=== PATIENT | male | born 1995 | race African-American/Black ===

== ENCOUNTER 2018-01-06 16:46 | Emergency (ER) | payer SELFPAY ==
[2018-01-06 16:54] VITALS: BP 137/68; BMI 20.5
[2018-01-06] MEDS ORDERED: IBUPROFEN 600 MG TABLET (FP) PO ONE ×2 (17:31→17:41)
--- NOTE | 2018-01-06 17:31 | PDOC ---
History of Present Illness - General Chief Complaint: Headache Stated Complaint: HEADACHE Time Seen by Provider: 01/06/18 17:10 History Source: Patient Exam Limitations: No Limitations - History of Present Illness Initial Comments: CHIEF COMPLAINT: 22 y/o febrile male c/o fever and headache x 4 days. HISTORY OF PRESENT ILLNESS: The patient states the headache is in the front of his head. He denies neck pain, changes in vision/hearing, earache, cough, runny nose, nasal congestion, n/v/d, CP, SOB, abd pain, decrease in PO intake. The patient has taken some claritin, excedrin, dayquil and nyquil for his symptoms with little relief. Vital signs on arrival are notable for pulse of 99 secondary to temp of 100. REVIEW OF SYSTEMS: GENERAL/CONSTITUTIONAL: +fever HEAD, EYES, EARS, NOSE AND THROAT: No change in vision. No ear pain or discharge. No sore throat. CARDIOVASCULAR: No chest pain or shortness of breath. RESPIRATORY: No cough, wheezing, or hemoptysis. GASTROINTESTINAL: No abd pain, nausea, vomiting, diarrhea. GENITOURINARY: No dysuria, frequency, or change in urination. MUSCULOSKELETAL: No joint or muscle swelling or pain. No neck or back pain. SKIN: No rash or easy bruising. NEUROLOGIC: +headache. No , vertigo, loss of consciousness, or loss of sensation. PHYSICAL EXAM: GENERAL: The patient is awake, alert, and fully oriented, in no acute distress. He is well appearing and ambulatory. HEAD: Normal with no signs of trauma. No pain with palpation of sinuses. NECK: No meningismus. ENT: Pupils equal, round and reactive to light, extraocular movements intact, sclera anicteric, conjunctiva clear. LUNGS: Clear to auscultation bilaterally. Normal excursion. No respiratory distress or use of accessory muscles. CV: RRR, S1/S2, no MRG. Cap refill < 2 sec. ABDOMEN: Soft, non-distended, non-tender even to deep palpation, no hepatomegaly or splenomegaly, no masses. EXTREMITIES: Normal range of motion, no edema. NEUROLOGICAL: Normal speech, normal gait. CN II-XII grossly intact. PSYCH: Normal mood, normal affect. SKIN: Warm, dry, normal turgor, no rashes or lesions noted. Past History - Past Medical History Allergies/Adverse Reactions: Allergies Allergy/AdvReac Type Severity Reaction Status Date / Time No Known Allergies Allergy Verified 01/06/18 16:51 Home Medications: Ambulatory Orders NK [No Known Home Medication] 01/06/18 Anemia: Yes COPD: No DVT: No Dementia: No - Immunization History Immunization Up to Date: No - Suicide/Smoking/Psychosocial Hx Smoking History: Never smoked Have you smoked in the past 12 months: No Information on smoking cessation initiated: No Hx Alcohol Use: No Drug/Substance Use Hx: No Substance Use Type: Marijuana *Physical Exam - Vital Signs Last Vital Signs Temp Pulse Resp BP Pulse Ox 100.0 F H 99 H 16 137/68 100 01/06/18 16:51 01/06/18 16:51 01/06/18 16:51 01/06/18 16:51 01/06/18 16:51 Medical Decision Making - Medical Decision Making A/P: 22 y/o male with fever and headache x 4 days. Normal physical exam. Plan is as follows: 1. PO ibuprofen 2. IM decadron 3. PO benadryl The patient is no longer febrile or tachycardic. He states his headache has lessened with ibuprofen. Will discharge to home with supportive care instructions. The patient verbalizes understanding of all instructions, has no further questions and is awaiting discharge. *DC/Admit/Observation/Transfer Diagnosis at time of Disposition: Fever Qualifiers: Fever type: unspecified Qualified Code(s): R50.9 - Fever, unspecified Headache Qualifiers: Headache type: unspecified Headache chronicity pattern: acute headache Intractability: not intractable Qualified Code(s): R51 - Headache - Discharge Dispostion Disposition: HOME Condition at time of disposition: Improved - Referrals - Patient Instructions Printed Discharge Instructions: DI for Fever (Symptom) -- Adult, DI for Headache Additional Instructions: Discharge Instructions: -Alternate between 600mg of over the counter Ibuprofen and 650mg of over the counter Tylenol every 3 hours for fever and headache -Drink lots of fluids -Get plenty of rest -Return to the ER with any worsening or concerning symptoms - Post Discharge Activity Forms/Work/School Notes: Back to Work
[2018-01-06] MEDS ORDERED: DEXAMETHASONE SOD PHOSPHATE 10 MG/1 ML VIAL IM ONE (17:32)
[2018-01-06] MEDS ORDERED: diphenhydrAMINE HCL 25 MG CAPSULE (FP) PO ONE ×2 (17:32→17:42)
[2018-01-06] MEDS ORDERED: DEXAMETHASONE SOD PHOSPHATE 10 MG/1 ML VIAL ONE (17:41)
[2018-01-06 18:55] VITALS: PULSE 92; TEMP 99.8
== END 2018-01-06 18:53 | disposition home or self-care (01) ==
LOC: JERFT 16:46 → JER 16:46 → JERFT 18:53
PROC: 3E0233Z Introduction of Anti-inflammatory into Muscle, Percutaneous Approach (ICD-10-PCS; principal; 2018-01-06)
DX: R50.9 Fever, unspecified (principal); R51 Headache
CPT/HCPCS: 96372; 99281-25; J1100

== ENCOUNTER 2018-01-08 08:55 | Inpatient (IN) | payer OTHER ==
[2018-01-08] MEDS ORDERED: KETOROLAC TROMETHAMINE 30 MG/1 ML VIAL IVPUSH ONE ×2 (09:30→17:26)
[2018-01-08] MEDS ORDERED: METOCLOPRAMIDE HCL INJECTION 10 MG/2 ML VIAL IVPB ONE ×2 (09:30→17:26)
[2018-01-08] MEDS ORDERED: SODIUM CHLORIDE 1,000 ML IV STA (09:30)
[2018-01-08] MEDS ORDERED: METOCLOPRAMIDE HCL INJECTION 10 MG/2 ML VIAL ONE ×2 (09:35→17:29)
[2018-01-08] MEDS ORDERED: KETOROLAC TROMETHAMINE 30 MG/1 ML VIAL ONE ×2 (09:35→17:29)
--- NOTE | 2018-01-08 09:35 | PDOC ---
History of Present Illness - General Chief Complaint: Headache Stated Complaint: MIGRAINE HEADACHE Time Seen by Provider: 01/08/18 09:20 History Source: Patient - History of Present Illness Timing/Duration: reports: other Severity: Yes: severe Past History - Past Medical History Allergies/Adverse Reactions: Allergies Allergy/AdvReac Type Severity Reaction Status Date / Time mushroom Allergy Verified 01/08/18 08:59 Home Medications: Ambulatory Orders NK [No Known Home Medication] 01/06/18 Anemia: Yes CVA: No COPD: No DVT: No Dementia: No - Immunization History Immunization Up to Date: No - Suicide/Smoking/Psychosocial Hx Smoking History: Never smoked Have you smoked in the past 12 months: No Information on smoking cessation initiated: No Hx Alcohol Use: No Drug/Substance Use Hx: No Substance Use Type: Marijuana Review of Systems - Review of Systems Constitutional: No: Chills, Fever HEENTM: No: Blurred Vision ABD/GI: No: Nausea, Vomiting Neurological: Yes: Headache. No: Dizziness *Physical Exam - Vital Signs Last Vital Signs Temp Pulse Resp BP Pulse Ox 98.3 F 58 L 18 105/82 100 01/08/18 08:57 01/08/18 08:57 01/08/18 08:57 01/08/18 08:57 01/08/18 08:57 - Physical Exam General Appearance: Yes: Appropriately Dressed. No: Apparent Distress HEENT: positive: Normal Voice Neck: positive: Supple. negative: Tender, Decreased range of motion Respiratory/Chest: negative: Respiratory Distress Integumentary: positive: Dry, Warm Neurologic: positive: regulator mechanic II-XII NML intact, Fully Oriented, Alert, Normal Mood/ Affect, Motor Strength 5/5 (no nystagmus, [place] intact, no drift, no ataxia) ED Treatment Course - LABORATORY CBC & Chemistry Diagram: 01/08/18 10:55 01/08/18 10:55 - RADIOLOGY Radiology Studies Ordered: Category Date Time Status HEAD CT WITHOUT CONTRAST [CT] Stat CT Scan 01/08/18 09:30 Ordered Medical Decision Making - Medical Decision Making 01/08/18 09:30 22-year-old male denies any past medical history here with headache. Patient reports that he developed severe frontal headache approximately 6 days ago, pressure-like in nature and on a scale of 10 out of 10. States nothing makes pain better or worse. No dizziness, visual changes, nausea, vomiting, or focal weakness. Denies neck pain, uri sxs, f/c. Patient states pain resolved at some point and then reoccurred 3 days ago when he was seen in the ED at [facility]. States pain resolved with IV meds and discharged to take Tylenol or Motrin for pain as needed. Patient states he has been taking Excedrin and Tylenol alternately that states pain even worse now. States this morning while walking to the bathroom he fell to the ground, did not lose consciousness. Patient not certain why he fell at states he was not dizzy and no chest pain prior to fall. Patient denies any significant family history. No unexplained weight loss. See exam Worsening FITCH Improved w/ IV meds meds in ED 3 days ago, did have low grade fever of 100F on last ED visit No infectious sxs at this time Neuro intact in ED -pain control -CT given concerning story and ?near syncope -if discharged, will need neuro f/u for possible MRI if FITCH persists 01/08/18 10:46 CT head read as severe sinus disease including almost opacified frontal sinuses w/ ~3.2x1.3 mm pneumocephalus w/ ? leptomeningeal thickening per radiology, who is physically in the ER. Recommends stat MRI +/-7. Pt remains stable and neurologically intact. Labs pending. NS consult placed 01/08/18 11:56 Pt actively vomiting in ED. Nathaliefran in progress. MRI staff aware and will expedite MRI 01/08/18 15:48 MRI read as mild dural thickening to level of right frontal lobe. Pneumocephalus that was seen on prior CT is not appreciated on MRI. No other acute pathology. Patient remains stable and well appearing and requesting food. Still awaiting callback from neurosurgery. Plan is to admit patient for IV antibiotics and further observation 01/08/18 15:[address] Ramon who recommends consultation with Dr. Gonzalez of neurologist and Dr. José of ID. Aware that I am still awaiting callback from neurosurgery. Patient admitted for IV antibiotics and further observation at this time *DC/Admit/Observation/Transfer Diagnosis at time of Disposition: Headache Qualifiers: Headache type: unspecified Headache chronicity pattern: acute headache Intractability: not intractable Qualified Code(s): R51 - Headache Sinusitis Qualifiers: Sinusitis location: frontal Chronicity: acute Recurrence: non-recurrent Qualified Code(s): J01.10 - Acute frontal sinusitis, unspecified - Discharge Dispostion Condition at time of disposition: Fair Admit: Yes - Referrals - Patient Instructions - Post Discharge Activity
[2018-01-08] MEDS ORDERED: VANCOMYCIN 1,000 MG in DEXTROSE 5%-WATER - 250 ML IVPB ONE (11:01)
[2018-01-08] MEDS ORDERED: CEFTRIAXONE 2 GM in DEXTROSE 5%-WATER - 50 ML IVPB ONE (11:01)
[2018-01-08 11:03] LABS: BASO % 0.3 % (0-2.0); EOS % 0.7 % (0-4.5); HEMATOCRIT 40.2 % (35.4-49); HEMOGLOBIN 13.2 GM/dL (11.7-16.9); LYMPH % 12.3 % (8-40); MCH 28.6 pg (25.7-33.7); MCHC 32.7 g/dl (32.0-35.9); MEAN CELL VOLUME 87.4 fl (80-96); MEAN PLT VOLUME 9.4 fl (7.5-11.1); MONO % 12.8 % (3.8-10.2); NEUT % 73.9 % (42.8-82.8); PLATELET COUNT 192 K/MM3 (134-434); RDW 12.8 % (11.9-15.9); WHITE BLOOD COUNT 11.3 K/mm3 (4.0-10.0)
[2018-01-08] MEDS ORDERED: CEFTRIAXONE 2 GM/100 ML BAG IVPB ONE (11:12)
[2018-01-08] MEDS ORDERED: VANCOMYCIN 1 GRAM (PRE-DOCKED) 1,000 MG/250 ML BAG IVPB ONE (11:12)
[2018-01-08 11:44] LABS: ALBUMIN 3.4 g/dl (3.4-5.0); ALK PHOS 52 U/L (45-117); ANION GAP 8 (8-16); BILIRUBIN,TOTAL 0.7 mg/dL (0.2-1.0); BLOOD UREA NITROGEN 12 mg/dL (7-18); CALCIUM 8.6 mg/dL (8.5-10.1); CHLORIDE 106 mmol/L (98-107); CO2 27 mmol/L (21-32); CREATININE 1.2 mg/dL (0.7-1.3); GLUCOSE,RANDOM 91 mg/dL (74-106); POTASSIUM 3.8 mmol/L (3.5-5.1); SGOT/AST 12 U/L (15-37); SGPT/ALT 14 U/L (12-78); SODIUM 141 mmol/L (136-145)
[2018-01-08] MEDS ORDERED: SODIUM CHLORIDE 500 ML IV STA (11:55)
[2018-01-08] MEDS ORDERED: ONDANSETRON 4 MG/2 ML VIAL IVPUSH ONE (11:55)
[2018-01-08 12:04] LABS: INR 1.3 (0.82-1.09); PROTHROMBIN TIME (PATIENT) 14.7 SEC (9.7-13.0)
[2018-01-08] MEDS ORDERED: ONDANSETRON 4 MG/2 ML VIAL ONE (12:07)
[2018-01-08 12:11] LABS: URINE APPEARANCE CLEAR; URINE BILIRUBIN NEGATIVE (<2.0 mg/dL); URINE BLOOD NEGATIVE (NEGATIVE); URINE COLOR LTYELLOW; URINE GLUCOSE (UA) NEGATIVE (NEGATIVE); URINE KETONE NEGATIVE (NEGATIVE); URINE LEUK ESTERASE NEGATIVE (NEGATIVE); URINE NITRITE NEGATIVE (NEGATIVE); URINE PROTEIN NEGATIVE (NEGATIVE); URINE UROBILINOGEN 4.0 E.U/dl mg/dL (0.2-1.0)
--- NOTE | 2018-01-08 16:43 | PDOC ---
*Physical Exam - Vital Signs Last Vital Signs Temp Pulse Resp BP Pulse Ox 98.2 F 58 L 18 106/60 100 01/08/18 15:01 01/08/18 15:01 01/08/18 15:01 01/08/18 15:01 01/08/18 15:01 - Physical Exam Comments: 01/08/18 16:43 Pt seen by the Advanced Practice Provider under my direct supervision Ancillary studies reviewed I agree with plan as outlined by the Advanced Practice Provider ED Treatment Course - LABORATORY CBC & Chemistry Diagram: 01/08/18 10:55 01/08/18 10:55 - ADDITIONAL ORDERS Additional order review: Laboratory Results 01/08/18 01/08/18 01/08/18 12:55 11:37 11:09 PT with INR 14.70 H INR 1.30 H Sodium Potassium Chloride Carbon Dioxide Anion Gap BUN Creatinine Creat Clearance w eGFR Random Glucose Calcium Total Bilirubin AST ALT Alkaline Phosphatase Total Protein Albumin Urine Color Ltyellow Urine Appearance Clear Urine pH 6.0 Ur Specific [place] 1.011 Urine Protein Negative Urine Glucose (UA) Negative Urine Ketones Negative Urine Blood Negative Urine Nitrite Negative Urine Bilirubin Negative Urine Urobilinogen 4.0 e.u/dl Ur Leukocyte Esterase Negative Blood Type B POSITIVE Antibody Screen 01/08/18 01/08/18 10:55 10:55 PT with INR INR Sodium 141 Potassium 3.8 Chloride 106 Carbon Dioxide 27 Anion Gap 8 BUN 12 Creatinine 1.2 Creat Clearance w eGFR > 60 Random Glucose 91 Calcium 8.6 Total Bilirubin 0.7 AST 12 L ALT 14 Alkaline Phosphatase 52 Total Protein 7.0 Albumin 3.4 Urine Color Urine Appearance Urine pH Ur Specific [place] Urine Protein Urine Glucose (UA) Urine Ketones Urine Blood Urine Nitrite Urine Bilirubin Urine Urobilinogen Ur Leukocyte Esterase Blood Type B POSITIVE Antibody Screen Negative 01/08/18 10:55 RBC 4.60 MCV 87.4 MCHC 32.7 RDW 12.8 MPV 9.4 Neutrophils % 73.9 Lymphocytes % 12.3 Monocytes % 12.8 H Eosinophils % 0.7 Basophils % 0.3 - Medications Given in the ED: ED Medications Discontinued Medications Generic Name Dose Route Start Last Admin Trade Name Freq PRN Reason Stop Dose Admin Sodium Chloride 1,000 mls @ 1,000 mls/hr 01/08/18 09:30 01/08/18 09:44 Normal Saline - IV 01/08/18 10:29 1,000 mls/hr ASDIR STA Administration Ceftriaxone Sodium 2 gm/ 50 mls @ 100 mls/hr 01/08/18 11:01 01/08/18 11:20 Dextrose IVPB 01/08/18 11:30 100 mls/hr ONCE ONE Administration Vancomycin HCl 1,000 mg/ 250 mls @ 250 mls/hr 01/08/18 11:01 01/08/18 11:48 Dextrose IVPB 01/08/18 12:00 250 mls/hr ONCE ONE Administration Protocol Sodium Chloride 500 mls @ 500 mls/hr 01/08/18 11:55 01/08/18 12:14 Normal Saline - IV 01/08/18 12:54 500 mls/hr ASDIR STA Administration Ketorolac Tromethamine 30 mg 01/08/18 09:30 01/08/18 09:44 Toradol Injection - IVPUSH 01/08/18 09:31 30 mg ONCE ONE Administration Metoclopramide HCl 10 mg 01/08/18 09:30 01/08/18 09:44 Reglan Injection - IVPB 01/08/18 09:31 10 mg ONCE ONE Administration Ondansetron HCl 4 mg 01/08/18 11:55 01/08/18 12:14 Zofran Injection IVPUSH 01/08/18 11:56 4 mg ONCE ONE Administration *DC/Admit/Observation/Transfer Diagnosis at time of Disposition: Headache Qualifiers: Headache type: unspecified Headache chronicity pattern: acute headache Intractability: not intractable Qualified Code(s): R51 - Headache Sinusitis Qualifiers: Sinusitis location: frontal Chronicity: acute Recurrence: non-recurrent Qualified Code(s): J01.10 - Acute frontal sinusitis, unspecified - Discharge Dispostion Condition at time of disposition: Fair - Referrals - Patient Instructions - Post Discharge Activity
[2018-01-08 19:22] VITALS: BMI 20.3
--- NOTE | 2018-01-08 19:31 | HP ---
Admitting History and Physical - Primary Care Physician PCP: Shelly Ramon - Admission Chief Complaint: headache History of Present Illness: 22-year-old male denies any past medical history here with headache. Patient reports that he developed severe frontal headache approximately 6 days ago, pressure-like in nature and on a scale of 10 out of 10. States nothing makes pain better or worse. No dizziness, visual changes, nausea, vomiting, or focal weakness. Denies neck pain, uri sxs, f/c. Patient states pain resolved at some point and then reoccurred 3 days ago when he was seen in the ED at [facility]. States pain resolved with IV meds and discharged to take Tylenol or Motrin for pain as needed. Patient states he has been taking Excedrin and Tylenol alternately that states pain even worse now. States this morning while walking to the bathroom he fell to the ground, did not lose consciousness. Patient not certain why he fell at states he was not dizzy and no chest pain prior to fall. - Smoking History Smoking history: Never smoked Have you smoked in the past 12 months: Yes - Alcohol/Substance Use Hx Alcohol Use: Yes Home Medications - Allergies Allergies/Adverse Reactions: Allergies Allergy/AdvReac Type Severity Reaction Status Date / Time mushroom Allergy Verified 01/08/18 08:59 - Home Medications Home Medications: Ambulatory Orders NK [No Known Home Medication] 01/06/18 Physical Examination Vital Signs: Vital Signs Temperature 98.9 F 01/08/18 19:01 Pulse Rate 55 L 01/08/18 19:01 Respiratory Rate 20 01/08/18 19:01 Blood Pressure 113/56 01/08/18 19:01 O2 Sat by Pulse Oximetry (%) 100 01/08/18 18:26 Constitutional: Yes: No Distress HENT: Yes: Atraumatic Neck: Yes: Supple Cardiovascular: Yes: Regular Rate and Rhythm Respiratory: Yes: CTA Bilaterally Gastrointestinal: Yes: Normal Bowel Sounds Extremities: Yes: WNL Edema: No Peripheral Pulses WNL: Yes Neurological: Yes: Alert, Oriented Labs: CBC, BMP 01/08/18 10:55 01/08/18 10:55 Problem List - Problems (1) Headache Assessment/Plan: prn pain meds will get neuro involved Code(s): R51 - HEADACHE Qualifiers: Headache type: unspecified Headache chronicity pattern: acute headache Intractability: not intractable Qualified Code(s): R51 - Headache (2) Sinusitis Assessment/Plan: on abx will get id involved Code(s): J32.9 - CHRONIC SINUSITIS, UNSPECIFIED Qualifiers: Sinusitis location: frontal Chronicity: acute Recurrence: non-recurrent Qualified Code(s): J01.10 - Acute frontal sinusitis, unspecified (3) Fever Assessment/Plan: prn tylenol Code(s): R50.9 - FEVER, UNSPECIFIED Qualifiers: Fever type: unspecified Qualified Code(s): R50.9 - Fever, unspecified Assessment/Plan Active Medications Generic Name Dose Route Start Last Admin Trade Name Freq PRN Reason Stop Dose Admin Acetaminophen 650 mg 01/08/18 21:19 Tylenol - PO Q6H PRN FEVER Oxycodone HCl 10 mg 01/08/18 21:19 Roxicodone - PO Q6H PRN PAIN Laboratory Tests 01/08/18 01/08/18 01/08/18 10:55 10:55 10:55 WBC 11.3 H RBC 4.60 Hgb 13.2 Hct 40.2 MCV 87.4 MCH 28.6 MCHC 32.7 RDW 12.8 Plt Count 192 MPV 9.4 Neutrophils % 73.9 Lymphocytes % 12.3 Monocytes % 12.8 H Eosinophils % 0.7 Basophils % 0.3 PT with INR INR Sodium 141 Potassium 3.8 Chloride 106 Carbon Dioxide 27 Anion Gap 8 BUN 12 Creatinine 1.2 Creat Clearance w eGFR > 60 Random Glucose 91 Calcium 8.6 Total Bilirubin 0.7 AST 12 L ALT 14 Alkaline Phosphatase 52 Total Protein 7.0 Albumin 3.4 Urine Color Urine Appearance Urine pH Ur Specific [place] Urine Protein Urine Glucose (UA) Urine Ketones Urine Blood Urine Nitrite Urine Bilirubin Urine Urobilinogen Ur Leukocyte Esterase Blood Type B POSITIVE Antibody Screen Negative 01/08/18 01/08/18 01/08/18 11:09 11:37 12:55 WBC RBC Hgb Hct MCV MCH MCHC RDW Plt Count MPV Neutrophils % Lymphocytes % Monocytes % Eosinophils % Basophils % PT with INR 14.70 H INR 1.30 H Sodium Potassium Chloride Carbon Dioxide Anion Gap BUN Creatinine Creat Clearance w eGFR Random Glucose Calcium Total Bilirubin AST ALT Alkaline Phosphatase Total Protein Albumin Urine Color Ltyellow Urine Appearance Clear Urine pH 6.0 Ur Specific [place] 1.011 Urine Protein Negative Urine Glucose (UA) Negative Urine Ketones Negative Urine Blood Negative Urine Nitrite Negative Urine Bilirubin Negative Urine Urobilinogen 4.0 e.u/dl Ur Leukocyte Esterase Negative Blood Type B POSITIVE Antibody Screen Active Medications Generic Name Dose Route Start Last Admin Trade Name Freq PRN Reason Stop Dose Admin Acetaminophen 650 mg 01/08/18 21:19 01/09/18 16:29 Tylenol - PO 650 mg Q6H PRN Administration FEVER Ampicillin Sodium/Sulbactam 100 mls @ 200 mls/hr 01/09/18 14:45 01/09/18 15: 48 Sodium 3 gm/ Sodium Chloride IVPB 200 mls/hr Q8H-IV EWELINA Administration Ketorolac Tromethamine 30 mg 01/08/18 23:56 01/09/18 11:35 Toradol Injection - IVPUSH 01/13/18 23:55 30 mg Q8H PRN Administration PAIN LEVEL 7 - 10 Oxycodone HCl 10 mg 01/08/18 21:19 01/09/18 16:30 Roxicodone - PO 10 mg Q6H PRN Administration PAIN
[2018-01-08] MEDS: oxyCODONE HCL 5 MG TABLET PO PRN (22:00)
[2018-01-08] MEDS: ACETAMINOPHEN 325 MG TABLET (FP) PO PRN (22:01)
[2018-01-09] MEDS: KETOROLAC TROMETHAMINE 30 MG/1 ML VIAL IVPUSH PRN ×3 (00:06→23:44)
[2018-01-09] MEDS: oxyCODONE HCL 5 MG TABLET PO PRN ×2 (06:56→16:30)
[2018-01-09] MEDS: ACETAMINOPHEN 325 MG TABLET (FP) PO PRN ×2 (06:58→16:29)
[2018-01-09 07:48] LABS: BASO % 0.4 % (0-2.0); HEMATOCRIT 38.7 % (35.4-49); HEMOGLOBIN 12.8 GM/dL (11.7-16.9); LYMPH % 17.4 % (8-40); MCH 28.9 pg (25.7-33.7); MCHC 33.2 g/dl (32.0-35.9); MEAN PLT VOLUME 8.5 fl (7.5-11.1); MONO % 12.1 % (3.8-10.2); NEUT % 69.1 % (42.8-82.8); PLATELET COUNT 219 K/MM3 (134-434); RBC 4.44 M/mm3 (4.00-5.60); RDW 12.8 % (11.9-15.9); WHITE BLOOD COUNT 6.7 K/mm3 (4.0-10.0)
--- NOTE | 2018-01-09 14:38 | CON.ID ---
Consult Consult Specialty:: infectious diseases Reason for Consultation:: sinusitis - History of Present Illness Chief Complaint: headache,sinus pain History of Present Illness: 22-year-old male with no past medical history coming to the hospital for intractable headaches. Patient reports that he developed severe frontal headache approximately 6 days ago, pressure-like in nature and on a scale of 10 out of 10. States nothing makes pain better or worse. No dizziness, visual changes, nausea, vomiting, or focal weakness. Denies neck pain, uri sxs, f/c. Patient states pain resolved at some point and then reoccurred 3 days ago when he was seen in the ED at [facility]. States pain resolved with IV meds and discharged to take Tylenol or Motrin for pain as needed. Patient states he has been taking Excedrin and Tylenol alternately that states pain even worse now. States this morning while walking to the bathroom he fell to the ground, did not lose consciousness. Patient not certain why he fell at states he was not dizzy and no chest pain prior to fall. currently he has severe pain at the site of frontal sinus no fevers patient is a chronic weed smoker - History Source History Provided By: Patient Limitations to Obtaining History: No Limitations - Alcohol/Substance Use Hx Alcohol Use: Yes - Smoking History Smoking history: Never smoked Have you smoked in the past 12 months: Yes Home Medications - Allergies Allergies/Adverse Reactions: Allergies Allergy/AdvReac Type Severity Reaction Status Date / Time mushroom Allergy Verified 01/08/18 08:59 - Home Medications Home Medications: Ambulatory Orders NK [No Known Home Medication] 01/06/18 Review of Systems - Review of Systems Constitutional: reports: No Symptoms Eyes: reports: No Symptoms. denies: Blurred Vision, Double Vision, Eye Pain, Recent Change in Vision HENT: reports: Other (frontal headaches) Neck: reports: No Symptoms Cardiovascular: reports: No Symptoms Respiratory: reports: No Symptoms Gastrointestinal: reports: No Symptoms Genitourinary: reports: No Symptoms Breasts: reports: No Symptoms Reported Integumentary: reports: No Symptoms Neurological: reports: No Symptoms Endocrine: reports: No Symptoms Hematology/Lymphatic: reports: No Symptoms Psychiatric: reports: No Symptoms Physical Exam Vital Signs: Vital Signs Temperature 99.0 F 01/09/18 10:00 Pulse Rate 57 L 01/09/18 10:00 Respiratory Rate 18 01/09/18 10:00 Blood Pressure 114/55 01/09/18 10:00 O2 Sat by Pulse Oximetry (%) 100 01/08/18 23:00 Constitutional: Yes: Well Nourished, Calm, Moderate Distress Eyes: Yes: Conjunctiva Clear HENT: Yes: Atraumatic, Normocephalic, Other (movement of the head--no neck stiffness no rigidity pain on frontal sinuses) Neck: Yes: Supple, Trachea Midline Cardiovascular: Yes: Regular Rate and Rhythm Respiratory: Yes: Regular, CTA Bilaterally Gastrointestinal: Yes: Normal Bowel Sounds, Soft Musculoskeletal: Yes: WNL Extremities: Yes: WNL Neurological: Yes: Alert, Oriented, Other (headache and tenderness on palpation on the frontal sinuses) Labs: CBC, BMP 01/09/18 06:15 01/08/18 10:55 Imaging - Results Cat Scan: Report Reviewed, Image Reviewed MRI: Image Reviewed Assessment/Plan Problem List - Problems (1) Headache Code(s): R51 - HEADACHE Qualifiers: Headache type: unspecified Headache chronicity pattern: acute headache Intractability: not intractable Qualified Code(s): R51 - Headache (2) Sinusitis Code(s): J32.9 - CHRONIC SINUSITIS, UNSPECIFIED Qualifiers: Sinusitis location: frontal Chronicity: acute Recurrence: non-recurrent Qualified Code(s): J01.10 - Acute frontal sinusitis, unspecified (3) Fever Code(s): R50.9 - FEVER, UNSPECIFIED Qualifiers: Fever type: unspecified Qualified Code(s): R50.9 - Fever, unspecified plan i have started the patient on iv abx will wait for mri result wbc has normalized if patient has fevers cx the patient i think we should get neurology on board
[2018-01-09] MEDS ORDERED: PT OWN MED DRAWER 7, Y5N ONE (14:55)
[2018-01-09] MEDS: AMPICILLIN NA/SULBACTAM NA 3 GM in SODIUM CHLORIDE 100 ML IVPB SCH ×2 (15:48→20:35)
--- NOTE | 2018-01-09 18:45 | PN ---
Progress Note, Physician History of Present Illness: still has headache - Current Medication List Current Medications: Active Medications Acetaminophen (Tylenol -) 650 mg PO Q6H PRN PRN Reason: FEVER Last Admin: 01/09/18 16:29 Dose: 650 mg Ampicillin Sodium/Sulbactam (Sodium 3 gm/ Sodium Chloride) 100 mls @ 200 mls/ hr IVPB Q8H-IV EWELINA Last Admin: 01/09/18 15:48 Dose: 200 mls/hr Ketorolac Tromethamine (Toradol Injection -) 30 mg IVPUSH Q8H PRN PRN Reason: PAIN LEVEL 7 - 10 Stop: 01/13/18 23:55 Last Admin: 01/09/18 11:35 Dose: 30 mg Oxycodone HCl (Roxicodone -) 10 mg PO Q6H PRN PRN Reason: PAIN Last Admin: 01/09/18 16:30 Dose: 10 mg - Objective Vital Signs: Vital Signs Temperature 99.0 F 01/09/18 14:44 Pulse Rate 56 L 01/09/18 14:44 Respiratory Rate 18 01/09/18 14:44 Blood Pressure 113/54 01/09/18 14:44 O2 Sat by Pulse Oximetry (%) 100 01/08/18 23:00 Constitutional: Yes: No Distress HENT: Yes: Atraumatic Neck: Yes: Supple Cardiovascular: Yes: Regular Rate and Rhythm Respiratory: Yes: CTA Bilaterally Gastrointestinal: Yes: Normal Bowel Sounds Extremities: Yes: WNL Neurological: Yes: Alert, Oriented Labs: CBC, BMP 01/09/18 06:15 01/08/18 10:55 INR, PTT INR 1.30 (0.82-1.09) H 01/08/18 11:37 Problem List - Problems (1) Headache Assessment/Plan: prn pain meds will get neuro involved Code(s): R51 - HEADACHE Qualifiers: Headache type: unspecified Headache chronicity pattern: acute headache Intractability: not intractable Qualified Code(s): R51 - Headache (2) Sinusitis Assessment/Plan: on abx will get id involved Code(s): J32.9 - CHRONIC SINUSITIS, UNSPECIFIED Qualifiers: Sinusitis location: frontal Chronicity: acute Recurrence: non-recurrent Qualified Code(s): J01.10 - Acute frontal sinusitis, unspecified (3) Fever Assessment/Plan: prn tylenol Code(s): R50.9 - FEVER, UNSPECIFIED Qualifiers: Fever type: unspecified Qualified Code(s): R50.9 - Fever, unspecified
--- NOTE | 2018-01-09 19:00 | CON.NEURO ---
Consult Consult Specialty:: NEUROLOGY-[facility] Reason for Consultation:: Headache - History of Present Illness Chief Complaint: Headache History of Present Illness: 22-year-old male denies any past medical history here with headache. Patient reports that he developed severe frontal headache last week Monday, it lasted 24 hours than subsided completely-bifrontal mainly, pounding acc. by photophobia, pounding characterand on a scale of 10 out of 10. Last week Monday pain recurred to settle mainly behind right eye but is bifrontal. Worsened by bending head, forehead is tender to pressure, developed fever in house. He clearly describes tearing right eye. No dizziness, visual changes, + nausea, or focal weakness. Denies neck pain, uri sxs, f/c. he was seen in the ED at [facility]. States pain resolved with IV meds and discharged to take Tylenol or Motrin for pain as needed. Patient states he has been taking Excedrin and Tylenol alternately that states pain even worse now. States this morning while walking to the bathroom he fell to the ground, did not lose consciousness. Patient not certain why he fell at states he was not dizzy and no chest pain prior to fall. - MRI brain reveals "tiny air-pocket along right ant. paramedian margin of right frontal lobe with suggestion of mild dural thickening at this level without abscess, no enhancement. CT head- 3.2x1.3mm pneumocephalus along inner table of right frontal calvarium, mucoperiosteal thickening in left max. sinus. Opacified left ant.ethmoid air cells/frontal sinuses. - Alcohol/Substance Use Hx Alcohol Use: Yes - Smoking History Smoking history: Never smoked Have you smoked in the past 12 months: Yes Home Medications - Allergies Allergies/Adverse Reactions: Allergies Allergy/AdvReac Type Severity Reaction Status Date / Time mushroom Allergy Verified 01/08/18 08:59 - Home Medications Home Medications: Ambulatory Orders NK [No Known Home Medication] 01/06/18 Physical Exam-Neuro Vital Signs: Vital Signs Temperature 99.0 F 01/09/18 14:44 Pulse Rate 56 L 01/09/18 14:44 Respiratory Rate 18 01/09/18 14:44 Blood Pressure 113/54 01/09/18 14:44 O2 Sat by Pulse Oximetry (%) 100 01/08/18 23:00 Labs: CBC, BMP 01/09/18 06:15 01/08/18 10:55 INR, PTT INR 1.30 (0.82-1.09) H 01/08/18 11:37 - Neuro Exam DTR's: 2+ Left Bicep, 2+ Right Bicep, 2+ Left Tricep, 2+ Right Tricep, 2+ Left Brachioradialis, 2+ Right Brachioradialis, 2+ Left Achilles, 2+ Right Achilles Motor Strength: 5/5: Left Arm, Right Arm, Left Leg, Right Leg Assessment/Plan Pt. with sudden onset headache with character of cluster(lacrimation), this FITCH is likely secondary to pneumocephalus as described on imagingt. Etiologies of air behind frontal sinus unclear, usually occurs due to barotrauma leading to burst air cells, there is no hx. of such nor of other trauma. Can be seen in severe sinusitis too.Other possibility is a dural process leading to extravasation of air by causing a post. sinus wall defect although there is no enhancement of possibly thickened dura. Very less likely focal vasculitis. Suggest: 1) Woulde treat with Depacon 500mg ivss q8rs- headache is mediated by branches of trigeminal nerve supplying perea of sinuses. Would cont antibiotics. 2) ENT consult 3) ESR/CRP/KIKO/HELENE level. Thank you, Wild Gonzalez MD
[2018-01-09] MEDS: VALPROATE SODIUM 500 MG/5 ML VIAL IVPB SCH (21:15)
[2018-01-09 21:25] LABS: ALBUMIN 2.9 g/dl (3.4-5.0); ANION GAP 4 (8-16); BILIRUBIN,TOTAL 0.7 mg/dL (0.2-1.0); BLOOD UREA NITROGEN 9 mg/dL (7-18); CALCIUM 8.5 mg/dL (8.5-10.1); CHLORIDE 101 mmol/L (98-107); CO2 33 mmol/L (21-32); CREATININE 1.1 mg/dL (0.7-1.3); GLUCOSE,RANDOM 77 mg/dL (74-106); SGOT/AST 27 U/L (15-37); SGPT/ALT 35 U/L (12-78); SODIUM 138 mmol/L (136-145); TOT PROT 6.3 g/dl (6.4-8.2)
[2018-01-09 21:26] LABS: ALK PHOS 67 U/L (45-117)
[2018-01-10] MEDS: VALPROATE SODIUM 500 MG/5 ML VIAL IVPB SCH ×2 (01:50→11:39)
[2018-01-10] MEDS: AMPICILLIN NA/SULBACTAM NA 3 GM in SODIUM CHLORIDE 100 ML IVPB SCH ×3 (02:40→17:00)
--- NOTE | 2018-01-10 08:27 | PN ---
Progress Note (short form) - Note Progress Note: 22-year-old male denies any past medical history here with headache. Patient reports that he developed severe frontal headache last week Monday, it lasted 24 hours than subsided completely-bifrontal mainly, pounding acc. by photophobia, pounding characterand on a scale of 10 out of 10. Last week Monday pain recurred to settle mainly behind right eye but is bifrontal. Worsened by bending head, forehead is tender to pressure, developed fever in house. He clearly describes tearing right eye. No dizziness, visual changes, + nausea, or focal weakness. Denies neck pain, uri sxs, f/c. he was seen in the ED at [facility]. States pain resolved with IV meds and discharged to take Tylenol or Motrin for pain as needed. Patient states he has been taking Excedrin and Tylenol alternately that states pain even worse now. States this morning while walking to the bathroom he fell to the ground, did not lose consciousness. Patient not certain why he fell at states he was not dizzy and no chest pain prior to fall. - MRI brain reveals "tiny air-pocket along right ant. paramedian margin of right frontal lobe with suggestion of mild dural thickening at this level without abscess, no enhancement. CT head- 3.2x1.3mm pneumocephalus along inner table of right frontal calvarium, mucoperiosteal thickening in left max. sinus. Opacified left ant.ethmoid air cells/frontal sinuses. FU : FITCH last night but this AM more tolerable - Alcohol/Substance Use Hx Alcohol Use: Yes - Smoking History Smoking history: Never smoked Have you smoked in the past 12 months: Yes Home Medications - Allergies Allergies/Adverse Reactions: Allergies Allergy/AdvReac Type Severity Reaction Status Date / Time mushroom Allergy Verified 01/08/18 08:59 - Home Medications Home Medications: Ambulatory Orders NK [No Known Home Medication] 01/06/18 Physical Exam-Neuro Vital Signs: Vital Signs Temperature 98.5 F 01/10/18 06:27 Pulse Rate 54 L 01/10/18 06:27 Respiratory Rate 20 01/10/18 06:27 Blood Pressure 109/52 01/10/18 06:27 O2 Sat by Pulse Oximetry (%) 100 01/08/18 23:00 Labs: CBCD WBC 6.7 K/mm3 (4.0-10.0) D 01/09/18 06:15 RBC 4.44 M/mm3 (4.00-5.60) 01/09/18 06:15 Hgb 12.8 GM/dL (11.7-16.9) 01/09/18 06:15 Hct 38.7 % (35.4-49) 01/09/18 06:15 MCV 87.0 fl (80-96) 01/09/18 06:15 MCHC 33.2 g/dl (32.0-35.9) 01/09/18 06:15 RDW 12.8 % (11.9-15.9) 01/09/18 06:15 Plt Count 219 K/MM3 (134-434) 01/09/18 06:15 MPV 8.5 fl (7.5-11.1) 01/09/18 06:15 CMP Sodium 138 mmol/L (136-145) 01/09/18 19:45 Potassium 4.0 mmol/L (3.5-5.1) 01/09/18 19:45 Chloride 101 mmol/L (98-107) 01/09/18 19:45 Carbon Dioxide 33 mmol/L (21-32) H D 01/09/18 19:45 Anion Gap 4 (8-16) L 01/09/18 19:45 BUN 9 mg/dL (7-18) D 01/09/18 19:45 Creatinine 1.1 mg/dL (0.7-1.3) 01/09/18 19:45 Creat Clearance w eGFR > 60 (>60) 01/09/18 19:45 Calcium 8.5 mg/dL (8.5-10.1) 01/09/18 19:45 Total Bilirubin 0.7 mg/dL (0.2-1.0) 01/09/18 19:45 AST 27 U/L (15-37) D 01/09/18 19:45 ALT 35 U/L (12-78) D 01/09/18 19:45 Alkaline Phosphatase 67 U/L (45-117) D 01/09/18 19:45 Total Protein 6.3 g/dl (6.4-8.2) L 01/09/18 19:45 Albumin 2.9 g/dl (3.4-5.0) L 01/09/18 19:45 - Neuro Exam DTR's: 2+ Left Bicep, 2+ Right Bicep, 2+ Left Tricep, 2+ Right Tricep, 2+ Left Brachioradialis, 2+ Right Brachioradialis, 2+ Left Achilles, 2+ Right Achilles Motor Strength: 5/5: Left Arm, Right Arm, Left Leg, Right Leg Assessment/Plan Pt. with sudden onset headache with character of cluster(lacrimation) though more likley sinusitis; no HX of migraines rest exam nonfocal will DC depacon ENT consult on ABX , and perhaps add steroids , use NSAIDs for now Dr Vallejo
[2018-01-10] MEDS: KETOROLAC TROMETHAMINE 30 MG/1 ML VIAL IVPUSH PRN ×2 (10:49→23:42)
--- NOTE | 2018-01-10 11:38 | PN ---
Progress Note, Physician History of Present Illness: patient doing better headaches better - Current Medication List Current Medications: Active Medications Acetaminophen (Tylenol -) 650 mg PO Q6H PRN PRN Reason: FEVER Last Admin: 01/09/18 16:29 Dose: 650 mg Ampicillin Sodium/Sulbactam (Sodium 3 gm/ Sodium Chloride) 100 mls @ 200 mls/ hr IVPB Q8H-IV EWELINA Last Admin: 01/10/18 10:03 Dose: 200 mls/hr Ketorolac Tromethamine (Toradol Injection -) 30 mg IVPUSH Q8H PRN PRN Reason: PAIN LEVEL 7 - 10 Stop: 01/13/18 23:55 Last Admin: 01/10/18 10:49 Dose: 30 mg Oxycodone HCl (Roxicodone -) 10 mg PO Q6H PRN PRN Reason: PAIN Last Admin: 01/09/18 16:30 Dose: 10 mg Valproate Sodium (Depacon Injection -) 500 mg IVPB Q8H-IV EWELINA Last Admin: 01/10/18 01:50 Dose: 500 mg - Objective Vital Signs: Vital Signs Temperature 98.9 F 01/10/18 10:00 Pulse Rate 58 L 01/10/18 10:00 Respiratory Rate 18 01/10/18 10:00 Blood Pressure 116/57 01/10/18 10:00 O2 Sat by Pulse Oximetry (%) 100 01/08/18 23:00 Constitutional: Yes: No Distress, Calm HENT: Yes: Other (tenderness on the sinuses less) Cardiovascular: Yes: Regular Rate and Rhythm Respiratory: Yes: Regular, CTA Bilaterally Gastrointestinal: Yes: Normal Bowel Sounds, Soft Musculoskeletal: Yes: WNL Extremities: Yes: WNL Neurological: Yes: Alert, Oriented Psychiatric: Yes: Alert, Oriented Labs: CBC, BMP 01/09/18 06:15 01/09/18 19:45 INR, PTT INR 1.30 (0.82-1.09) H 01/08/18 11:37 Assessment/Plan Problem List - Problems (1) Headache Code(s): R51 - HEADACHE Qualifiers: Headache type: unspecified Headache chronicity pattern: acute headache Intractability: not intractable Qualified Code(s): R51 - Headache (2) Sinusitis Code(s): J32.9 - CHRONIC SINUSITIS, UNSPECIFIED Qualifiers: Sinusitis location: frontal Chronicity: acute Recurrence: non-recurrent Qualified Code(s): J01.10 - Acute frontal sinusitis, unspecified (3) Fever Code(s): R50.9 - FEVER, UNSPECIFIED Qualifiers: Fever type: unspecified Qualified Code(s): R50.9 - Fever, unspecified plan continue iv abx for now will decide about switching to oral
[2018-01-10] MEDS ORDERED: PT OWN MED DRAWER 7, Y5N ONE (16:58)
[2018-01-10] MEDS: oxyCODONE HCL 5 MG TABLET PO PRN (17:00)
[2018-01-10] MEDS: ACETAMINOPHEN 325 MG TABLET (FP) PO PRN (17:01)
--- NOTE | 2018-01-10 18:29 | PN ---
Progress Note, Physician History of Present Illness: still has headache but better - Current Medication List Current Medications: Active Medications Acetaminophen (Tylenol -) 650 mg PO Q6H PRN PRN Reason: FEVER Last Admin: 01/10/18 17:01 Dose: 650 mg Ampicillin Sodium/Sulbactam (Sodium 3 gm/ Sodium Chloride) 100 mls @ 200 mls/ hr IVPB Q8H-IV EWELINA Last Admin: 01/10/18 17:00 Dose: 200 mls/hr Ketorolac Tromethamine (Toradol Injection -) 30 mg IVPUSH Q8H PRN PRN Reason: PAIN LEVEL 7 - 10 Stop: 01/13/18 23:55 Last Admin: 01/10/18 10:49 Dose: 30 mg Oxycodone HCl (Roxicodone -) 10 mg PO Q6H PRN PRN Reason: PAIN Last Admin: 01/10/18 17:00 Dose: 10 mg - Objective Vital Signs: Vital Signs Temperature 98.9 F 01/10/18 17:31 Pulse Rate 60 01/10/18 17:31 Respiratory Rate 18 01/10/18 17:31 Blood Pressure 137/72 01/10/18 17:31 O2 Sat by Pulse Oximetry (%) 100 01/08/18 23:00 Constitutional: Yes: No Distress HENT: Yes: Atraumatic Neck: Yes: Supple Cardiovascular: Yes: Regular Rate and Rhythm Respiratory: Yes: CTA Bilaterally Gastrointestinal: Yes: Normal Bowel Sounds Extremities: Yes: WNL Edema: No Peripheral Pulses WNL: Yes Neurological: Yes: Alert, Oriented Labs: CBC, BMP 01/09/18 06:15 01/09/18 19:45 INR, PTT INR 1.30 (0.82-1.09) H 01/08/18 11:37 Problem List - Problems (1) Headache Assessment/Plan: prn pain meds neuro consult reviewed mri done and report seen Code(s): R51 - HEADACHE Qualifiers: Headache type: unspecified Headache chronicity pattern: acute headache Intractability: not intractable Qualified Code(s): R51 - Headache (2) Sinusitis Assessment/Plan: on abx Code(s): J32.9 - CHRONIC SINUSITIS, UNSPECIFIED Qualifiers: Sinusitis location: frontal Chronicity: acute Recurrence: non-recurrent Qualified Code(s): J01.10 - Acute frontal sinusitis, unspecified (3) Fever Code(s): R50.9 - FEVER, UNSPECIFIED Qualifiers: Fever type: unspecified Qualified Code(s): R50.9 - Fever, unspecified
--- NOTE | 2018-01-10 19:45 | CONSULT ---
Consult - text type - Consultation Consultation Note: NEUROSURGERY CONSULTATION Patient is a 22 year old male who has a recent onset of headaches associated with tearing and photophobia. Intracranial air noted on CT and associated dural thickening on MRI. Aside from his headaches and photophobia, he has no nuchal rigidity and is Neurologically nonfocal. There is no history of trauma or recent air travel. There is no CSF rhinorhea or otorhea. Notes from Drs. Gonzalez and Estefanía are reviewed and seem to address all relevant issues. It does not seem that there is any role for acute Neurosurgical intervention at this time.
[2018-01-11] MEDS: AMPICILLIN NA/SULBACTAM NA 3 GM in SODIUM CHLORIDE 100 ML IVPB SCH ×2 (01:12→09:32)
[2018-01-11] MEDS ORDERED: PT OWN MED DRAWER 7, Y5N ONE (08:44)
[2018-01-11] MEDS: oxyCODONE HCL 5 MG TABLET PO PRN (10:17)
[2018-01-11] MEDS: ACETAMINOPHEN 325 MG TABLET (FP) PO PRN (10:20)
--- NOTE | 2018-01-11 13:26 | PN ---
Progress Note, Physician History of Present Illness: patient stable still c/o of headaches - Current Medication List Current Medications: Active Medications Acetaminophen (Tylenol -) 650 mg PO Q6H PRN PRN Reason: FEVER Last Admin: 01/11/18 10:20 Dose: 650 mg Ampicillin Sodium/Sulbactam (Sodium 3 gm/ Sodium Chloride) 100 mls @ 200 mls/ hr IVPB Q8H-IV EWELINA Last Admin: 01/11/18 09:32 Dose: 200 mls/hr Ketorolac Tromethamine (Toradol Injection -) 30 mg IVPUSH Q8H PRN PRN Reason: PAIN LEVEL 7 - 10 Stop: 01/13/18 23:55 Last Admin: 01/10/18 23:42 Dose: 30 mg Oxycodone HCl (Roxicodone -) 10 mg PO Q6H PRN PRN Reason: PAIN Last Admin: 01/11/18 10:17 Dose: 10 mg - Objective Vital Signs: Vital Signs Temperature 98.8 F 01/11/18 12:07 Pulse Rate 68 01/11/18 12:07 Respiratory Rate 18 01/11/18 12:07 Blood Pressure 120/60 01/11/18 12:07 O2 Sat by Pulse Oximetry (%) 99 01/10/18 21:00 Constitutional: Yes: No Distress, Calm Cardiovascular: Yes: Regular Rate and Rhythm Respiratory: Yes: Regular, CTA Bilaterally Gastrointestinal: Yes: Normal Bowel Sounds, Soft Musculoskeletal: Yes: WNL Extremities: Yes: WNL Neurological: Yes: Alert, Oriented Psychiatric: Yes: Alert, Oriented Labs: CBC, BMP 01/09/18 06:15 01/09/18 19:45 INR, PTT INR 1.30 (0.82-1.09) H 01/08/18 11:37 Assessment/Plan Problem List - Problems (1) Headache Code(s): R51 - HEADACHE Qualifiers: Headache type: unspecified Headache chronicity pattern: acute headache Intractability: not intractable Qualified Code(s): R51 - Headache (2) Sinusitis Code(s): J32.9 - CHRONIC SINUSITIS, UNSPECIFIED Qualifiers: Sinusitis location: frontal Chronicity: acute Recurrence: non-recurrent Qualified Code(s): J01.10 - Acute frontal sinusitis, unspecified (3) Fever Code(s): R50.9 - FEVER, UNSPECIFIED Qualifiers: Fever type: unspecified Qualified Code(s): R50.9 - Fever, unspecified plan will switch to oral abx rest continue as per neurology
[2018-01-11 17:19] VITALS: BP 128/69; PULSE 52; TEMP 98.3
[2018-01-11] MEDS ORDERED: AMOX TR/POT CLAV 875MG/125MG TABLETS (FP) PO SCH (17:30)
--- NOTE | 2018-01-11 17:32 | PN ---
Progress Note, Physician History of Present Illness: headache is much better ok to go home - Current Medication List Current Medications: Active Medications Acetaminophen (Tylenol -) 650 mg PO Q6H PRN PRN Reason: FEVER Last Admin: 01/11/18 10:20 Dose: 650 mg Amoxicillin/Clavulanate Potassium (Augmentin - 875mg Tablet) 1 tab PO BID@0800, 1730 EWELINA Last Admin: 01/11/18 17:20 Dose: 1 tab Ketorolac Tromethamine (Toradol Injection -) 30 mg IVPUSH Q8H PRN PRN Reason: PAIN LEVEL 7 - 10 Stop: 01/13/18 23:55 Last Admin: 01/10/18 23:42 Dose: 30 mg Oxycodone HCl (Roxicodone -) 10 mg PO Q6H PRN PRN Reason: PAIN Last Admin: 01/11/18 10:17 Dose: 10 mg - Objective Vital Signs: Vital Signs Temperature 98.3 F 01/11/18 17:18 Pulse Rate 52 L 01/11/18 17:18 Respiratory Rate 18 01/11/18 17:18 Blood Pressure 128/69 01/11/18 17:18 O2 Sat by Pulse Oximetry (%) 99 01/10/18 21:00 Constitutional: Yes: No Distress HENT: Yes: Atraumatic Neck: Yes: Supple Cardiovascular: Yes: Regular Rate and Rhythm Respiratory: Yes: CTA Bilaterally Gastrointestinal: Yes: Normal Bowel Sounds Extremities: Yes: WNL Neurological: Yes: Alert, Oriented Labs: CBC, BMP 01/09/18 06:15 01/09/18 19:45 INR, PTT INR 1.30 (0.82-1.09) H 01/08/18 11:37 Problem List - Problems (1) Headache Assessment/Plan: prn pain meds neuro consult reviewed mri done and report seen Code(s): R51 - HEADACHE Qualifiers: Headache type: unspecified Headache chronicity pattern: acute headache Intractability: not intractable Qualified Code(s): R51 - Headache (2) Sinusitis Assessment/Plan: on abx ..po now Code(s): J32.9 - CHRONIC SINUSITIS, UNSPECIFIED Qualifiers: Sinusitis location: frontal Chronicity: acute Recurrence: non-recurrent Qualified Code(s): J01.10 - Acute frontal sinusitis, unspecified (3) Fever Assessment/Plan: has been afebrile Code(s): R50.9 - FEVER, UNSPECIFIED Qualifiers: Fever type: unspecified Qualified Code(s): R50.9 - Fever, unspecified
--- NOTE | 2018-01-11 18:07 | DS ---
Physical Examination Vital Signs: Vital Signs Temperature 98.3 F 01/11/18 17:18 Pulse Rate 52 L 01/11/18 17:18 Respiratory Rate 18 01/11/18 17:18 Blood Pressure 128/69 01/11/18 17:18 O2 Sat by Pulse Oximetry (%) 99 01/10/18 21:00 Constitutional: Yes: No Distress HENT: Yes: Atraumatic Neck: Yes: Supple Cardiovascular: Yes: Regular Rate and Rhythm Respiratory: Yes: CTA Bilaterally Gastrointestinal: Yes: Normal Bowel Sounds Extremities: Yes: WNL Neurological: Yes: Alert, Oriented Labs: CBC, BMP 01/09/18 06:15 01/09/18 19:45 Discharge Summary Reason For Visit: HEADACHE Current Active Problems Headache (Acute) Sinusitis (Acute) Condition: Fair - Instructions Diet, Activity, Other Instructions: see your doctor/neurologist 1 week come back to emergency room if headache comes back or gets worse - Home Medications Comprehensive Discharge Medication List: Ambulatory Orders Amox-Tr/K Cl [Augmentin 875-125mg Tablet -] 1 tab PO BID@0800,1730 #14 tablet see your pmd/neurologist 1 week
== END 2018-01-11 19:04 | disposition home or self-care (01) | DRG 113 ==
LOC: JER 08:55 → JERBED 16:07 → J8W 18:29
PROVIDERS: ADMIT Internal Medicine; ATTEND Internal Medicine
DX: J01.10 Acute frontal sinusitis, unspecified (principal); D64.9 Anemia, unspecified; R51 Headache; R50.9 Fever, unspecified; G93.89 Other specified disorders of brain; H53.142 Visual discomfort, left eye
CPT/HCPCS: 36415; 70450-TC; 70553-TC; 80053; 81003; 85025; 85610; 85651; 86038; 86140; 86850; 86900; 86901; 99284-25; C1887; J7030